=== PATIENT | female | born 1995 | race Caucasian/White ===

== ENCOUNTER 2019-12-22 21:38 | Emergency (ER) | payer MEDICAID, OTHER ==
[~2019-12-22] VITALS: Ht 157.5 cm; Wt 75.0 kg
[2019-12-22 23:20] VITALS: BP 130/86
[2019-12-22] MEDS ORDERED: ACETAMINOPHEN 500 MG TABLET PO ONE (23:45)
[2019-12-22] MEDS ORDERED: AMOX TR/POT CLAV 875 MG/125 MG TABLET PO ONE (23:45)
== END 2019-12-22 23:40 | disposition home or self-care (01) ==
LOC: EMS 21:39
DX: H92.01 Otalgia, right ear (principal)

== ENCOUNTER 2020-06-17 11:58 | Emergency (ER) | payer MEDICAID ==
[~2020-06-17] VITALS: Ht 157.5 cm; Wt 77.3 kg
[2020-06-17] MEDS ORDERED: BUPIVACAINE HCL/PF 0.75% 10 ML OPHTHALMIC SOLUTION OD ONE (12:45)
[2020-06-17] MEDS ORDERED: FLUORESCEIN SODIUM 1 MG STRIP OD ONE (12:45)
[2020-06-17] MEDS ORDERED: SODIUM CHLORIDE 0.9% 1,000 ML IV ONE ×2 (12:45→13:45)
[2020-06-17] MEDS ORDERED: OxyCODONE HCL/ACETAMINOPHEN 5-325 MG TABLET PO ONE (12:45)
[2020-06-17] MEDS ORDERED: PROPARACAINE HCL 0.5% 15 ML OPHTHALMIC SOLUTION OD ONE (13:30)
[2020-06-17 16:22] LABS: COVID AG,FIA SOURCE NASOPHARYNGEAL
[2020-06-17 16:25] VITALS: BP 132/65
== END 2020-06-17 17:22 | disposition home or self-care (01) ==
LOC: EMS 12:12
DX: T26.61XA Corrosion of cornea and conjunctival sac, right eye, initial encounter (principal); Y92.89 Other specified places as the place of occurrence of the external cause
CPT/HCPCS: 87426; 96360; 96361; 99284; J7030; J3490

== ENCOUNTER 2021-04-13 16:39 | Emergency (ER) | payer MEDICAID ==
[~2021-04-13] VITALS: Ht 162.6 cm; Wt 75.0 kg
[2021-04-13 16:45] VITALS: BP 141/80
[2021-04-13] MEDS ORDERED: POVIDONE-IODINE 10% 15 ML SOLUTION UD TP ONE (18:30)
[2021-04-13] MEDS ORDERED: PERTUSS(ACELL),DIPH,TET VAC/PF 0.5 ML SYRINGE IM. ONE (18:30)
[2021-04-13] MEDS ORDERED: BACITRACIN 0.9 GM PACKET OINTMENT TP ONE (18:30)
[2021-04-13] MEDS ORDERED: ACETAMINOPHEN 500 MG TABLET PO ONE (18:45)
[2021-04-13] MEDS ORDERED: LIDOCAINE 1% 10 ML VIAL SQ ONE (19:15)
== END 2021-04-13 20:00 | disposition home or self-care (01) ==
LOC: EMS 16:39
DX: S81.011A Laceration without foreign body, right knee, initial encounter (principal); W22.8XXA Striking against or struck by other objects, initial encounter; Y93.89 Activity, other specified; Y92.89 Other specified places as the place of occurrence of the external cause; Y99.8 Other external cause status
CPT/HCPCS: 12002; 90471; 90715; 99283; J3490